=== PATIENT | male | born 1960 | race Caucasian/White ===

== ENCOUNTER 2016-02-19 11:05 | Emergency (ER) | payer OTHER ==
--- NOTE | 2016-02-19 12:05 | DIAGNOSTIC IMAGING REPORT ---
PROCEDURE: CT CERVICAL SPINE W/O CONTRAST CLINICAL INDICATION: Fell off ladder, initial encounter TECHNIQUE: Noncontrast axial images with sagittal and coronal reformations. COMPARISON: None. FINDINGS: Normal alignment without fracture. Mild spur formation with moderate C5-6 disc space narrowing. Moderate left C5-6 foraminal stenosis. Mild Save of six spinal stenosis. Paraspinal soft tissues are unremarkable. IMPRESSION: 1. No acute change 2. C5-6 degenerative changes with moderate left foraminal and mild spinal stenosis All CT scans at this facility use dose modulation, iterative reconstruction, and/or weight-based dosing when appropriate to reduce radiation dose to as low as reasonably achievable.
--- NOTE | 2016-02-19 12:11 | DIAGNOSTIC IMAGING REPORT ---
PROCEDURE: CT HEAD WITHOUT CONTRAST INDICATION: TRAUMA/INJURY TECHNIQUE: Noncontrast axial images with sagittal and coronal reformations. COMPARISON: None. FINDINGS: Sulci, ventricular system, and brain parenchyma are normal. Normal variant giant cisterna magna. No evidence of acute intracranial process. Left paranasal contusion. Moderate left maxillary and ethmoid sinus disease. Visualized mastoids and sinuses are clear. IMPRESSION: 1. No acute intracranial abnormality 2. Left paranasal soft tissue contusion 3. Sinus disease 4. Findings discussed with Dr. Cruz at 12:03 p.m.[facility] Standard Time
--- NOTE | 2016-02-19 12:11 | DIAGNOSTIC IMAGING REPORT ---
PROCEDURE: CT HEAD WITHOUT CONTRAST INDICATION: TRAUMA/INJURY TECHNIQUE: Noncontrast axial images with sagittal and coronal reformations. COMPARISON: None. FINDINGS: Sulci, ventricular system, and brain parenchyma are normal. Normal variant giant cisterna magna. No evidence of acute intracranial process. Left paranasal contusion. Moderate left maxillary and ethmoid sinus disease. Visualized mastoids and sinuses are clear. IMPRESSION: 1. No acute intracranial abnormality 2. Left paranasal soft tissue contusion 3. Sinus disease 4. Findings discussed with Dr. Cruz at 12:03 p.m.[facility] Standard Time
--- NOTE | 2016-02-19 12:11 | DIAGNOSTIC IMAGING REPORT ---
PROCEDURE: CT SINUS/FACIAL BONES W/O CONT CLINICAL INDICATION: Fell off ladder, initial encounter TECHNIQUE: Noncontrast axial images with coronal reformations. COMPARISON: None. FINDINGS: Midline soft tissue laceration of the upper lip with subcutaneous air. Mandible , zygomatic arches, pterygoid plates and nasal bone intact. Left antral window. Minor right maxillary and sphenoid, moderate left maxillary and mild ethmoid sinus disease. The globes and orbits are normal. IMPRESSION: 1. Midline laceration to the upper lip 2. Left antral window 3. Sinus disease 4. Results discussed Dr. Cruz All CT scans at this facility use dose modulation, iterative reconstruction, and/or weight-based dosing when appropriate to reduce radiation dose to as low as reasonably achievable.
--- NOTE | 2016-02-19 14:43 | DIAGNOSTIC IMAGING REPORT ---
PROCEDURE: XR HAND 3 OR 4 VIEWS - RIGHT INDICATION: TRAUMA/INJURY TECHNIQUE: Four views. COMPARISON: None. FINDINGS: Radiolucency of the distal radius laterally most likely represents a nutrient vessel. No dislocation. Joint spaces and soft tissues are normal. IMPRESSION: 1. Normal right hand.
--- NOTE | 2016-02-19 15:04 | DIAGNOSTIC IMAGING REPORT ---
PROCEDURE: XR WRIST MIN 3 VIEWS - RIGHT INDICATION: TRAUMA/INJURY TECHNIQUE: Three views. COMPARISON: None. FINDINGS: Radiolucency of the distal radius laterally which appears to represent a nutrient vessel. No definite fracture. No dislocation . Joint spaces and soft tissues are normal. IMPRESSION: 1. Normal right wrist.
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
--- NOTE | 2016-02-19 15:57 | ED ORDER SUMMARY ---
..... Patient: CARMEN BARAJAS OrderSheet [facility] VisitID: [id number] [place] [address] 56y, M Registration Date/Time: 02/19/2016 ORDER SHEET Weight: 92.9 kg (stated) Allergies: None GENERAL ORDERS: CT Cervical Spine wo Cont Urgent (11:14 02/19/2016 Quinn FENG) (Ack 11:17 TBergley) (11:33 Sarath) CT Sinus/Facial Bones wo Cont Urgent (11:14 02/19/2016 Quinn FENG) (Ack 11:17 TBergley) (11:33 Sarath) CT Head wo Cont Urgent (11:14 02/19/2016 Quinn FENG) (Ack 11:17 TBergley) (11:33 Sarath) CBC w Diff Urgent (11:02/19/2016 Quinn FENG) (Ack 11:17 TBergley) (11:49 LWhalen R.N.) CMP Urgent (11:14 02/19/2016 Quinn FENG) (Ack 11:17 TBergley) (11:49 LWhalen R.N.) UA-Culture if indicated Urgent (11:14 02/19/2016 Quinn FENG) (Ack 11:17 TBergley) (11:49 LWhalen R.N.) Ethyl Alcohol Urgent (11:15 02/19/2016 Quinn FENG) (Ack 11:17 TBergley) (11:49 LWhalen R.N.) Wrist 3 or 4V Right Urgent (13:55 02/19/2016 Quinn FENG) (Ack 13:57 TBergley) (14:07 TBergley) Hand 2V Right Urgent (13:55 02/19/2016 Quinn FENG) (Ack 13:57 TBergley) (Cancelled: Other14:00 Quinn FENG) Hand 3 or 4V Right Urgent (14:00 02/19/2016 Quinn FENG) (Ack 14:02 TBergley) (14:07 TBergley) Splint (UE) (Right) (Thumb Spica) (Short Arm) (15:46 02/19/2016 Quinn FENG) (16:16 LWdickson R.N.) MEDICATION ORDERS: Amoxicillin PO 500 mg (NOW) (15:53 02/19/2016 Quinn FENG) (16:16 LWdickson R.N.) IV FLUIDS: IV NS : initial bolus none -, then 500 mL/hr for 2h (NOW); Urgent (11:14 02/19/2016 Quinn FENG) (11:49 LWdickson R.N.) Dilaudid IV 0.5 mg (NOW) (13:56 02/19/2016 Quinn FENG) (14:00 LWdickson R.N.) Dilaudid IV 0.5 mg (HIGH ALERT MEDICATION) (15:45 02/19/2016 Curt R.N. verbal order read back to Quinn FENG) (15:47 LWdickson R.N.) ORDER SHEET NOTES: [Electronically signed by Nasir Chua R.N. (19:15 02/19/2016)] [Electronically signed by Tj Cruz MD (14:02 02/21/2016)] [Electronically locked/signed by Nasir Chua R.N. (19:15 02/19/2016)]
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
--- NOTE | 2016-02-19 15:57 | ED CLINICAL REPORT ---
Clinical Report - Physicians/Mid Levels [facility] [address] [place] [address] 02/19/2016 11:06 Patient: CARMEN BARAJAS Time Seen: 11:10; upon arrival. Arrived- By private vehicle. Historian- patient. HISTORY OF PRESENT ILLNESS Chief Complaint: INJURY TO FACE, MOUTH and RIGHT UPPER EXTREMITY (HAND). The injury occurred just prior to arrival. Fell. Occurred at home. ( Fell 5 feet off of a ladder onto a composite deck.). The patient complains of mild pain. The patient sustained a blow to the head. No neck pain. The patient was dazed (transient). REVIEW OF SYSTEMS No numbness, loss of vision, hearing loss, chest pain or difficulty breathing. No weakness, nausea, abdominal pain or vomiting. He sustained skin laceration. PAST HISTORY Rubin Abarca Ops: Neg Hosp: 12 year old, had hand and eye injury Illness; None. Tetanus immunization status is up-to-date. SOCIAL HISTORY Former smoker. ADDITIONAL NOTES The nursing notes have been reviewed. PHYSICAL EXAM Vital Signs: 02/19/2016 16:00 BP: 131/77. HR: 68. RR: 18. O2 saturation: 95%. Pain level now: 05/22. 02/19/2016 15:30 BP: 128/69. HR: 78. RR: 18. O2 saturation: 98%. 02/19/2016 15:00 BP: 133/77. HR: 77. RR: 18. O2 saturation: 98%. 02/19/2016 14:30 BP: 130/78. HR: 70. RR: 18. O2 saturation: 98%. 02/19/2016 14:00 BP: 131/67. HR: 65. RR: 18. O2 saturation: 98%. 02/19/2016 13:30 BP: 133/71. HR: 70. RR: 18. O2 saturation: 98%. Temp: 98.2 F. 02/19/2016 13:00 BP: 108/65. HR: 62. RR: 18. O2 saturation: 98%. 02/19/2016 12:30 BP: 116/63. HR: 61. RR: 18. O2 saturation: 97%. 02/19/2016 12:00 BP: 124/58. HR: 77. RR: 18. O2 saturation: 96%. 02/19/2016 11:51 BP: 132/82. HR: 69. RR: 18. O2 saturation: 95%. 02/19/2016 11:11 BP: 117/67. HR: 61. RR: 18. O2 saturation: 97%. Temp: 97.9 F. Appearance: C-collar in place. (in ED). Alert. Patient in mild distress. Head: Mouth: deep 2.0 cm laceration (involving the vermilion border of the lip) of the the upper lip. SEE LACERATION PROCEDURE NOTE #1. No malocclusion. Dental injury present. Eyes: Pupils equal, round and reactive to light. EOM intact. ENT: Pharynx normal. No malocclusion. (Fracture of R central and lateral incisors. Teeth are non-mobile). Neck: Painless ROM. Non-tender. CVS: Heart sounds normal. Respiratory: Breath sounds normal. Chest nontender. Abdomen: No visible injury. Soft and nontender. Bowel sounds normal. No mass. Back: No tenderness. Skin: Skin intact. Extremities: Right hand: multiple small abrasions. Thenar eminence, right hand: moderate tenderness and swelling. Neurovascular intact distally. No erythema. No limitation in movement of the thumb. Right knee: mild tenderness located in the patella. Neurovascular intact distally. No ligamentous laxity present. No joint effusion. No swelling, abrasion or deformity. No limitation in ROM. Neuro: Oriented X 3. No alteration in mental status. No cranial nerve deficit. No motor deficit. No sensory deficit. LABS, X-RAYS, AND EKG X-Rays: Right wrist negative. Right hand negative. The X-rays were interpreted by the radiologist and contemporaneously by me and discussed with the radiologist. CT C-Spine: No acute findings. The study was independently viewed by me, interpreted by the radiologist and discussed with the radiologist. CT Head: No acute disease. (Neg CT face as well). Head CT performed without contrast. The study was interpreted by the radiologist and discussed with the radiologist. PROGRESS AND PROCEDURES Laceration Repair: Location: face and mouth. Length: 1.5cm. Complexity: simple (local anesthesia used and sutured). Wound depth/shape- subcutaneous, irregular and flap-like and involving fascia. Wound is clean. No contamination, foreign body or contused tissue present. No tissue loss. Exam note: thru and thru. Distal neuro/vascular/tendon status normal. Tendon not examined. No tendon deficit or laceration or tendon injury. Local anesthesia provided using 1% lidocaine (5 mL). Prepped with Betadine. Wound explored, cleansed, irrigated and examined to the base in bloodless field extensively with normal saline. Wound not debrided. No foreign material removed. Closure of skin: interrupted 5-0 nylon (13 sutures). Subcutaneous closure: interrupted 5-0 chromic (3 sutures). Post-procedure: he is stable and there are no complications. Bleeding is controlled and neuro-vascular status is intact distal to the wound. Estimated blood loss: 5 mL. Course of Care: 11:13 02/19/16. Primary survey done and neg. Secondary survey done with results and documented. Wilfrido LAM did and documented the complex wound repair. Exam following repair shows excellent results. 11:39 02/19/16. C spine shows no acute changes. by my read. Undress for secondary survey. Splint placed by tech. 02/19/2016 11:51 BP: 132/82. HR: 69. RR: 18. O2 saturation: 95%. 02/19/2016 11:11 BP: 117/67. HR: 61. RR: 18. O2 saturation: 97%. Temp: 97.9 F. Disposition: Discharged. Condition: good. CLINICAL IMPRESSION Closed head injury. Single laceration to the upper lip. Complicated repair. Dental trauma: multiple fractured teeth. INSTRUCTIONS Do not work for three days. (EVERY 2 HOUR MENTAL STATUS CHECKS. IMMEDIATE RETURN IF NOT NORMAL SUTURES OUT IN 5 DAYS. SEE DENTIST). Prescription Medications: Hydrocodone/APAP 5mg / 325mg: take 1-2 orally every 4 hours as needed for pain. Dispense twenty (20). No refill. Amoxicillin 500 mg tablets: Take 1 orally every 8 hours for 7 days. Dispense twenty-one (21). No refills. Follow-up: Follow up with a dentist. Reason for referral: FOR DENTAL TRAUMA. Follow up with your doctor in five days for suture removal. (Electronically signed by Tj Cruz MD 02/21/2016 14:02)
--- NOTE | 2016-02-19 15:57 | ED ORDER SUMMARY ---
..... Patient: CARMEN BARAJAS OrderSheet [facility] VisitID: [id number] [place] [address] 56y, M Registration Date/Time: 02/19/2016 ORDER SHEET Weight: 92.9 kg (stated) Allergies: None GENERAL ORDERS: CT Cervical Spine wo Cont Urgent (11:14 02/19/2016 Quinn FENG) (Ack 11:17 TBergley) (11:33 Sarath) CT Sinus/Facial Bones wo Cont Urgent (11:14 02/19/2016 Quinn FENG) (Ack 11:17 TBergley) (11:33 Sarath) CT Head wo Cont Urgent (11:14 02/19/2016 Quinn FENG) (Ack 11:17 TBergley) (11:33 Sarath) CBC w Diff Urgent (11:02/19/2016 Quinn FENG) (Ack 11:17 TBergley) (11:49 LWhalen R.N.) CMP Urgent (11:14 02/19/2016 Quinn FENG) (Ack 11:17 TBergley) (11:49 LWhalen R.N.) UA-Culture if indicated Urgent (11:14 02/19/2016 Quinn FENG) (Ack 11:17 TBergley) (11:49 LWhalen R.N.) Ethyl Alcohol Urgent (11:15 02/19/2016 Quinn FENG) (Ack 11:17 TBergley) (11:49 LWhalen R.N.) Wrist 3 or 4V Right Urgent (13:55 02/19/2016 Quinn FENG) (Ack 13:57 TBergley) (14:07 TBergley) Hand 2V Right Urgent (13:55 02/19/2016 Quinn FENG) (Ack 13:57 TBergley) (Cancelled: Other14:00 Quinn FENG) Hand 3 or 4V Right Urgent (14:00 02/19/2016 Quinn FENG) (Ack 14:02 TBergley) (14:07 TBergley) Splint (UE) (Right) (Thumb Spica) (Short Arm) (15:46 02/19/2016 Quinn FENG) (16:16 LWdickson R.N.) MEDICATION ORDERS: Amoxicillin PO 500 mg (NOW) (15:53 02/19/2016 Quinn FENG) (16:16 LWdickson R.N.) IV FLUIDS: IV NS : initial bolus none -, then 500 mL/hr for 2h (NOW); Urgent (11:14 02/19/2016 Quinn FENG) (11:49 LWdickson R.N.) Dilaudid IV 0.5 mg (NOW) (13:56 02/19/2016 Quinn FENG) (14:00 LWdickson R.N.) Dilaudid IV 0.5 mg (HIGH ALERT MEDICATION) (15:45 02/19/2016 Curt R.N. verbal order read back to Quinn FENG) (15:47 LWdickson R.N.) ORDER SHEET NOTES: [Electronically signed by Nasir Chua R.N. (19:15 02/19/2016)] [Electronically signed by Tj Cruz MD (14:02 02/21/2016)] [Electronically locked/signed by Nasir Chua R.N. (19:15 02/19/2016)]
--- NOTE | 2016-02-21 14:02 | ED MAR SUMMARY ---
..... Medication Administration Record [address] [place] [address] Patient: CARMEN BARAJAS Visit ID: [id number] 56y, M Weight: 92.9 kg Height/Length: 70 in BMI: 29.4 ALLERGIES: None Start 11:34 02/19/2016 Nasir Chua R.N., Stop 13:33 02/19/2016 Warner Wilson R.N. Medication Administered: IV NS (SALINE), Dose: IV Fluids over 2 hour(s), Rate: 1000 mL/hr, Dispensed: 1000 mL bag, Site: #1 left AC. Medication Ordered: IV NS : initial bolus none -, then 500 mL/hr for 2h (NOW); Urgent. Given 14:00 02/19/2016 Nasir Chua R.N. Medication Administered: DILAUDID [IVP] (HYDROMORPHONE HCL PF), Dose: 0.5 mg IVP over 2 minute(s), Site: #1 left AC. Medication Ordered: Dilaudid IV 0.5 mg (NOW). Given 15:47 02/19/2016 Nasir Chua R.N. Medication Administered: DILAUDID [IVP] (HYDROMORPHONE HCL PF), Dose: 0.5 mg IVP over 2 minute(s), Site: #1 left AC. Medication Ordered: Dilaudid IV 0.5 mg (HIGH ALERT MEDICATION). Given 16:16 02/19/2016 Nasir Chua R.N. Medication Administered: AMOXICILLIN [PO], Dose: 500 mg Capsules PO. Medication Ordered: Amoxicillin PO 500 mg (NOW).
--- NOTE | 2016-02-21 14:02 | ED MAR SUMMARY ---
..... Medication Administration Record [facility] [address] [place] [address] Patient: CARMEN BARAJAS Visit ID: [id number] 56y, M Weight: 92.9 kg Height/Length: 70 in BMI: 29.4 ALLERGIES: None Start 11:34 02/19/2016 Nasir Chua R.N., Stop 13:33 02/19/2016 Warner Wilson R.N. Medication Administered: IV NS (SALINE), Dose: IV Fluids over 2 hour(s), Rate: 1000 mL/hr, Dispensed: 1000 mL bag, Site: #1 left AC. Medication Ordered: IV NS : initial bolus none -, then 500 mL/hr for 2h (NOW); Urgent. Given 14:00 02/19/2016 Nasir Chua R.N. Medication Administered: DILAUDID [IVP] (HYDROMORPHONE HCL PF), Dose: 0.5 mg IVP over 2 minute(s), Site: #1 left AC. Medication Ordered: Dilaudid IV 0.5 mg (NOW). Given 15:47 02/19/2016 Nasir Chua R.N. Medication Administered: DILAUDID [IVP] (HYDROMORPHONE HCL PF), Dose: 0.5 mg IVP over 2 minute(s), Site: #1 left AC. Medication Ordered: Dilaudid IV 0.5 mg (HIGH ALERT MEDICATION). Given 16:16 02/19/2016 Nasir Chua R.N. Medication Administered: AMOXICILLIN [PO], Dose: 500 mg Capsules PO. Medication Ordered: Amoxicillin PO 500 mg (NOW).
--- NOTE | 2016-02-21 14:02 | ED DISCHARGE INSTRUCTIONS ---
Patient: CARMEN BARAJAS General Instructions [facility] VisitID: [id number] [place] [address] 56y, M Registration Date/Time: 02/19/2016 Closed head injury. Single laceration to the upper lip. Complicated repair. Dental trauma: multiple fractured teeth. INSTRUCTIONS Do not work for three days. (EVERY 2 HOUR MENTAL STATUS CHECKS. IMMEDIATE RETURN IF NOT NORMAL SUTURES OUT IN 5 DAYS. SEE DENTIST). Prescription Medications: Hydrocodone/APAP 5mg / 325mg: take 1-2 orally every 4 hours as needed for pain. Dispense twenty (20). No refill. Amoxicillin 500 mg tablets: Take 1 orally every 8 hours for 7 days. Dispense twenty-one (21). No refills. Follow-up: Follow up with a dentist. Reason for referral: FOR DENTAL TRAUMA. Follow up with your doctor in five days for suture removal. ADDITIONAL INFORMATION Laceration, Face (Suture Or Tape) Alaceration is a cut through the skin. This will require stitches if it is deep. Minor cuts may be treated with surgical tape. Home care The following guidelines will help you care for your laceration at home: If a bandage was applied and it becomes wet or dirty, replace it. Otherwise, leave it in place for the first 24 hours, then change it once a day or as directed. If sutures were used, clean the wound daily: After removing the bandage, wash the area with soap and water. Use a wet cotton swab to loosen and remove any blood or crust that forms. After cleaning, keep the wound clean and dry. Talk with your doctor before applying any antibiotic ointment to the wound. Reapply a fresh bandage. You may remove the bandage to shower as usual after the first 24 hours, but do not soak the area in water (no swimming) until the sutures are removed. If surgical tape was used, keep the area clean and dry. If it becomes wet, blot it dry with a towel. The doctor may prescribe an antibiotic cream or ointment to prevent infection. Do not stop taking this medication until you have have finished the prescribed course or the doctor tells you to stop. The doctor may also prescribe medications for pain. Follow the doctor's instructions for taking these medications.If you have chronic liver or kidney disease or ever had a stomach ulcer or GI bleeding, talk with your doctor before using these medicines. Follow-up care Follow up with your health care provider. Most facial cuts heal in five days with no problem. However, even with proper treatment, a wound infection sometimes occurs. Therefore, check the wound daily for the warning signs listed below. Stitches should not be left in the face for more thanfivedays; otherwise, permanent stitch baird may form. If surgical tape closures were used, you may remove them yourself afterfivedays, if they have not fallen off by then. When to seek medical care Get prompt medical attention if any of these occur: Increasing pain in the wound Redness, swelling, or pus coming from the wound If sutures come apart or fall out before 5 days If the surgical tape closures fall off before 5 days, or the wound edges reopen Fever of 100.4F (38C) or higher, or as directed by your health care provider Bleeding not controlled by direct pressure Laceration, Lip and Mouth Alaceration is a cut through the skin. When the cut is on the outside of the lip, it may be closed with stitches, surgical tape, or sometimes skin glue. Cuts inside the mouth may be sutured or left open, depending on the size. When stitches are used in the mouth, they are usually the kind that dissolve. Home care The following guidelines will help you care for your laceration at home: Eat soft foods to reduce pain when chewing. If the cut isinsideyour mouth, clean the wound by rinsing your mouth after each meal and at bedtime with a mixture of equal parts water and hydrogen peroxide (do not swallow!). Or, you can use a cotton swab to apply hydrogen peroxide directly onto the cut. Mouth wounds can be painful when eating. You may use a local, [id number] numbing solution for pain relief. If this is not available, you may use any numbing solution for teething babies. You may apply this directly to the sores with a cotton-tip swab or with your finger. If the cut is on theoutsideof the lip and sutures were used, you may shower as usual after the first 24 hours, but do not put your head under water until the sutures are removed. After removing the bandage, wash the area with soap and water. Use a wet cotton swab to loosen and remove any blood or crust that forms. After cleaning, keep the wound clean and dry. Talk with your doctor before applying any antibiotic ointment to the wound. You may apply an adhesive bandage or leave the wound open. If surgical tape was used, keep the area clean and dry. If it becomes wet, blot it dry with a towel. Talk with your doctor before applying any antibiotic ointment to the wound. The surgical tape closures will usually fall off after about 5 days. If skin glue was used, do not scratch, rub, or pick at the adhesive film. Do not place tape directly over the film.Do not apply liquid, ointment, or creams to the wound while the film is inplace.Do not clean the wound with peroxide and do not apply ointment. Avoid activities that cause heavy sweating until the film has fallen off. Protect the wound from prolonged exposure to sunlight or tanning lamps. You may shower as usual but do not soak the wound in water (no swimming). If you were given an antibiotic to prevent infection, do not stop taking this medication until you have finished the prescribed course or the doctor tells you to stop. The doctor may prescribe medications for pain. Follow the doctor's instructions for taking these medications.If you have chronic liver or kidney disease or ever had a stomach ulcer or GI bleeding, talk with your doctor before using these medicines. Follow-up care Follow up with your health care provider. Cuts in and around the mouth heal in about five days. However, even with proper treatment, a wound infection sometimes occurs. Therefore, check the wound daily for the warning signs listed below. Stitches should not be left in the face for more thanfivedays; otherwise, permanent stitch baird may form. Unless told otherwise, you may remove surgical tape closures yourself afterfive days, if they have not already fallen off. Ifskin glue was used, the film will fall off by itself in 510 days. When to seek medical care Get prompt medical attention if any of these occur: Increasing pain in the wound Fever of 100.4F (38C) or higher, or as directed by your health care provider Redness, swelling, or pus coming from the wound If sutures come apart or fall out or if surgical tape falls off before three days If the wound edges reopen Bleeding not controlled by direct pressure Dental Trauma If the surface of the tooth is CHIPPED, your dentist will be able to smooth or repair it with a cap. Make an appointment when convenient. If the tooth is BROKEN off and sensitive to hot or cold, it is important to see a dentist or oral surgeon within 24 hours for evaluation and treatment. If the tooth is BENT or pushed out of alignment, this means there is a fracture of the tooth socket (bone). You must be seen as soon as possible by your dentist or oral surgeon to re-align and splint the tooth. This will hold it in place. If it is KNOCKED OUT, and if your physician re-inserted the tooth into the socket, it may be loose and could fall out again. See your dentist or oral surgeon as soon as possible so that a splint or brace can be applied to hold the tooth in place. By replacing the tooth, it may re-attach and stay in place for months or years. However, it will not be the same as a normal tooth and may discolor or need a root canal to preserve it. If it is KNOCKED OUT and could not be re-inserted , apply pressure to the socket with a folded gauze pad or cotton swab to prevent bleeding. See your dentist or oral surgeon as soon as possible for further evaluation. Home Care: Unless a splint was applied to your tooth, bite on a folded gauze pad or cotton swab to apply pressure to the tooth. This will help stabilize it and hold it in place until your dentist or oral surgeon sees you. Avoid very hot or very cold foods and liquids since your tooth may be sensitive to temperature changes. Do not chew on the side of the injured tooth. A cold pack on your jaw over the sore area may help reduce pain. You may use acetaminophen (Tylenol) or ibuprofen (Motrin, Advil) to control pain, unless another medicine was prescribed. [ NOTE: If you have chronic liver or kidney disease or ever had a stomach ulcer or GI bleeding, talk with your doctor before using these medicines.] Follow Up as directed with a dentist or oral surgeon. Get Prompt Medical Attention if any of the following occur: Your face becomes swollen or red Pain worsens Bleeding from the tooth socket or gum that you cannot control with pressure Fever of 100.4F (38C) or higher, or as directed by your healthcare provider Difficulty swallowing or breathing Head Injury With Wake-Up (Adult) You have had a head injury. It does not appear serious at this time. Symptoms of a more serious problem (concussion, bruising, or bleeding in the brain) may appear later. Therefore, watch for the WARNING SIGNS listed below. Home Care: During the next 24 hours someone must stay with you. This person should wake you every 2 hours to check for the signs below. If you have swelling of the face or scalp, apply an ice pack (ice cubes in a plastic bag, wrapped in a towel) for 20 minutes every 1-2 hours until the swelling starts to go down. Do not use aspirin or ibuprofen (Motrin, Advil) after a head injury. You may use acetaminophen (Tylenol) to control pain, unless another pain medicine was prescribed. [NOTE: If you have chronic liver or kidney disease or ever had a stomach ulcer or GI bleeding, talk with your doctor before using these medicines.] For the next 24 hours: Do not take alcohol, sedatives, or medicines that make you sleepy. Do not drive or operate machinery. Avoid strenuous activities. No lifting or straining. If you have had any symptoms of a concussion today (nausea, vomiting, dizziness, confusion, headache, memory loss, or you were knocked out), do not return to sports or any activity that could result in another head injury until all symptoms are gone and you have been cleared by your doctor. A second head injury before fully recovering from the first one can lead to serious brain injury. Follow Up with your doctor if symptoms are not improving after 24 hours, or as directed. [NOTE: A radiologist will review any X-rays or CT scans that were taken. We will notify you of any new findings that may affect your care.] Get Prompt Medical Attention if any of the following WARNING SIGNS occur: Repeated vomiting Severe or worsening headache or dizziness Unusual drowsiness, or unable to awaken as usual Confusion or change in behavior or speech, memory loss, blurred vision Convulsion (seizure) Increasing scalp or face swelling Redness, warmth or pus from the swollen area Fluid drainage or bleeding from the nose or ears Hydrocodone Bitartrate, Acetaminophen Oral tablet What is this medicine? ACETAMINOPHEN; HYDROCODONE (a set a CLAY wenceslao fen; tammie droe KOE done) is a pain reliever. It is used to treat mild to moderate pain. How should I use this medicine? Take this medicine by mouth. Swallow it with a full glass of water. Follow the directions on the prescription label. If the medicine upsets your stomach, take the medicine with food or milk. Do not take more than you are told to take. Talk to your licensed mortician regarding the use of this medicine in children. This medicine is not approved for use in children. What side effects may I notice from receiving this medicine? Side effects that you should report to your doctor or health urgent care physician as soon as possible: allergic reactions like skin rash, itching or hives, swelling of the face, lips, or tongue breathing problems confusion feeling faint or lightheaded, falls stomach pain yellowing of the eyes or skin Side effects that usually do not require medical attention (report to your doctor or health urgent care physician if they continue or are bothersome): nausea, vomiting stomach upset What may interact with this medicine? alcohol antihistamines isoniazid medicines for depression, anxiety, or psychotic disturbances medicines for sleep muscle relaxants naltrexone narcotic medicines (opiates) for pain phenobarbital ritonavir tramadol What if I miss a dose? If you miss a dose, take it as soon as you can. If it is almost time for your next dose, take only that dose. Do not take double or extra doses. Where should I keep my medicine? Keep out of the reach of children. This medicine can be abused. Keep your medicine in a safe place to protect it from theft. Do not share this medicine with anyone. Selling or giving away this medicine is dangerous and against the law. Store at room temperature between 15 and 30 degrees C (59 and 86 degrees F). Protect from light. Keep container tightly closed. Throw away any unused medicine after the expiration date. Discard unused medicine and used packaging carefully. Pets and children can be harmed if they find used or lost packages. What should I tell my health care provider before I take this medicine? They need to know if you have any of these conditions: brain tumor Crohn's disease, inflammatory bowel disease, or ulcerative colitis drink more than 3 alcohol-containing drinks per day drug abuse or addiction head injury heart or circulation problems kidney disease or problems going to the bathroom liver disease lung disease, asthma, or breathing problems an unusual or allergic reaction to acetaminophen, hydrocodone, other opioid analgesics, other medicines, foods, dyes, or preservatives or trying to get breast-feeding What should I watch for while using this medicine? Tell your doctor or health urgent care physician if your pain does not go away, if it gets worse, or if you have new or a different type of pain. You may develop tolerance to the medicine. Tolerance means that you will need a higher dose of the medicine for pain relief. Tolerance is normal and is expected if you take the medicine for a long time. Do not suddenly stop taking your medicine because you may develop a severe reaction. Your body becomes used to the medicine. This does NOT mean you are addicted. Addiction is a behavior related to getting and using a drug for a non-medical reason. If you have pain, you have a medical reason to take pain medicine. Your doctor will tell you how much medicine to take. If your doctor wants you to stop the medicine, the dose will be slowly lowered over time to avoid any side effects. You may get drowsy or dizzy when you first start taking the medicine or change doses. Do not drive, use machinery, or do anything that may be dangerous until you know how the medicine affects you. Stand or sit up slowly. There are different types of narcotic medicines (opiates) for pain. If you take more than one type at the same time, you may have more side effects. Give your health care provider a list of all medicines you use. Your doctor will tell you how much medicine to take. Do not take more medicine than directed. Call emergency for help if you have problems breathing. The medicine will cause constipation. Try to have a bowel movement at least every 2 to 3 days. If you do not have a bowel movement for 3 days, call your doctor or health urgent care physician. Too much acetaminophen can be very dangerous. Do not take Tylenol (acetaminophen) or medicines that contain acetaminophen with this medicine. Many non-prescription medicines contain acetaminophen. Always read the labels carefully. You have been given the following additional information: Laceration, Face (Suture Or Tape) Laceration, Lip/Mouth Dental Trauma HEAD INJURY with Wake-Up (Adult) Hydrocodone Bitartrate, Acetaminophen Oral tablet Do not work for three days. (Electronically signed by Tj Cruz MD 02/21/2016 14:02)
--- NOTE | 2016-02-21 14:02 | ED MED RECONCILIATION SUMMARY ---
Patient: CARMEN BARAJAS Medication Reconciliation Report [facility] VisitID: [id number] [address] [place] [address] 56y, M Registration Date/Time: 02/19/2016 Weight: 92.9 kg Height/Length: 70 in. BMI: 29.4 ALLERGIES: None The patient's Home Medications are listed below: NONE. The source(s) of the original Home Medication information: Not obtained. The following Medications were given to the patient in the Emergency Department: IV NS IV Fluids bolus 0, then 1000 mL/hr, administered: 02/19/2016 11:34:00 AM Dilaudid [IVP] IVP 0.5 mg, administered: 02/19/2016 2:00:00 PM Dilaudid [IVP] IVP 0.5 mg, administered: 02/19/2016 3:47:00 PM Amoxicillin [PO] PO 500 mg, administered: 02/19/2016 4:16:00 PM The following Medications were prescribed to the patient: Hydrocodone/APAP 5mg / 325mg: take 1-2 orally every 4 hours as needed for pain. Dispense twenty (20). No refill. -- Tj Cruz MD Amoxicillin 500 mg tablets: Take 1 orally every 8 hours for 7 days. Dispense twenty-one (21). No refills. -- Tj Cruz MD
--- NOTE | 2016-02-21 14:02 | ED MED RECONCILIATION SUMMARY ---
Patient: CARMEN BARAJAS Medication Reconciliation Report [facility] VisitID: [id number] [address] [place] [address] 56y, M Registration Date/Time: 02/19/2016 Weight: 92.9 kg Height/Length: 70 in. BMI: 29.4 ALLERGIES: None The patient's Home Medications are listed below: NONE. The source(s) of the original Home Medication information: Not obtained. The following Medications were given to the patient in the Emergency Department: IV NS IV Fluids bolus 0, then 1000 mL/hr, administered: 02/19/2016 11:34:00 AM Dilaudid [IVP] IVP 0.5 mg, administered: 02/19/2016 2:00:00 PM Dilaudid [IVP] IVP 0.5 mg, administered: 02/19/2016 3:47:00 PM Amoxicillin [PO] PO 500 mg, administered: 02/19/2016 4:16:00 PM The following Medications were prescribed to the patient: Hydrocodone/APAP 5mg / 325mg: take 1-2 orally every 4 hours as needed for pain. Dispense twenty (20). No refill. -- Tj Cruz MD Amoxicillin 500 mg tablets: Take 1 orally every 8 hours for 7 days. Dispense twenty-one (21). No refills. -- Tj Cruz MD
== END 2016-02-19 16:45 | disposition home or self-care (01) ==
LOC: ED SRH 11:05
DX: S02.5XXA Fracture of tooth (traumatic), initial encounter for closed fracture (principal); S01.511A Laceration without foreign body of lip, initial encounter; S09.90XA Unspecified injury of head, initial encounter; W11.XXXA Fall on and from ladder, initial encounter; Y93.89 Activity, other specified; Y92.009 Unspecified place in unspecified non-institutional (private) residence as the place of occurrence of the external cause; Y99.9 Unspecified external cause status; Z87.891 Personal history of nicotine dependence